=== PATIENT | female | born 1990 | race Caucasian/White ===

== ENCOUNTER 2017-02-06 10:06 | Emergency (ER) | payer OTHER ==
[~2017-02-06] VITALS: Ht 157.5 cm; Wt 72.6 kg
[2017-02-06 13:46] VITALS: BP 105/64
== END 2017-02-06 13:46 | disposition home or self-care (01) ==
LOC: ED 10:06
DX: O26.891 Other specified pregnancy related conditions, first trimester (principal); R10.30 Lower abdominal pain, unspecified